=== PATIENT | male | born 1980 | race Caucasian/White ===

== ENCOUNTER 2019-02-27 01:03 | Emergency (ER) | payer BC ==
[~2019-02-27] VITALS: Ht 185.4 cm; Wt 113.6 kg
[~2019-02-27 01:03] MED LIST: ADDERALL XR30 MG PO; CIPRO 500MG TA500 MG PO; DILAUDID 2MG TAB2 MG PO; FLOMAX0.4 MG PO; HYDROMORPHONE HC2 MG PO; LOPRESSOR50 MG PO; METHOCARBAMOL500 MG PO; NO HOME MEDICATIONS; PERCOCET 325 MG1 TA2 PO; PRINZIDE 25 MG-1 TAB PO; [UNRECOGNIZED DRUG - REMARK]
[2019-02-27 01:06] VITALS: TEMP 98.9
[2019-02-27] MEDS ORDERED: INVOKAMET XR 11 EAC1 PO (01:11)
[2019-02-27] MEDS ORDERED: AMOXICILLIN 8751 TAB PO (01:31)
[2019-02-27 01:41] VITALS: BP 163/92; PULSE 84
== END 2019-02-27 01:41 | disposition home or self-care (01) ==
LOC: COL.ER 01:03
DX: K08.89 Other specified disorders of teeth and supporting structures (principal)